=== PATIENT | female | born 1950 | race Caucasian/White ===

== ENCOUNTER → 2016-07-11 | Day surgery (SDC) | payer MEDICARE, MEDICAID ==
[~2016-07-11] MED LIST: BUPR-175 PO; CIPR500T4 PO; CLON1 PO; CYCL-36 PO; HYDR10TA16 PO; LACTATED RINGER'S 1000 ML INJ 1,000 ML ONE; PREV15CA20 PO; PROP20TA24 PO; PROPOFOL 200 MG/20 ML AMP IV ONE; SERT100 PO; TRAZ100 PO; ZOCO40TA PO; [UNRECOGNIZED DRUG - OTHER] PO
--- NOTE | 2016-07-11 10:51 | GIPROC ---
[facility] [address], [address] COLONOSCOPY PROCEDURE REPORT EXAM DATE: 07/11/2016 PATIENT NAME: Wang French MR #: [id number] BIRTHDATE: 1950 ENDOSCOPIST: Sina Sun MD ORDER #: [id number] NANNY/HOUSEHOLD MANAGER: Jade Darling RN STATUS: outpatient INDICATIONS: The patient is a 66 yr old female here for a colonoscopy due to high risk patient with personal history of colonic polyps PROCEDURE PERFORMED: Colonoscopy with polypectomy MEDICATIONS: None and Per Anesthesia. PREP QUALITY: excellent ESTIMATED BLOOD LOSS: None CONSENT: The patient understands the risks and benefits of the procedure and understands that these risks include, but are not limited to: sedation, allergic reaction, infection, perforation and/or bleeding. Alternative means of evaluation and treatment include, among others: physical exam, x-rays, and/or surgical intervention. The patient elects to proceed with this endoscopic procedure. medical equipment was checked for proper function. Hand hygiene and appropriate measures for infection prevention was taken. After the risks, benefits and alternatives of the procedure were thoroughly explained, Informed consent was verified, confirmed and timeout was successfully executed by the treatment team. A digital exam revealed no abnormalities of the rectum The [id number] ([id number]) endoscope was introduced through the anus and advanced to the cecum, which was identified by both the appendix and ileocecal valve. The instrument was then slowly withdrawn as the colon was fully examined. COLON FINDINGS: A medium sized smooth sessile polyp was found in the sigmoid colon. A polypectomy was performed with a cold snare. The resection was complete and the polyp tissue was completely retrieved. Moderate diverticulosis was noted in the sigmoid colon. The colon mucosa was otherwise normal. Retroflexed views revealed no abnormalities The scope was then completely withdrawn from the patient and the procedure terminated. PROCEDURE WITHDRAWAL TIME:8minutes ADVERSE EVENTS: There were no complications. IMPRESSIONS: 1. A medium sized sessile polyp was found in the sigmoid colon; polypectomy was performed with a cold snare 2. Moderate diverticulosis was noted in the sigmoid colon 3. The colon mucosa was otherwise normal 4. Retroflexed views revealed no abnormalities 5. Revealed no abnormalities of the rectum RECOMMENDATIONS: 1. Await biopsy results. Biopsy results will not be ready for 7-10 days. If you don't hear from us in two weeks, call our office for results. 2. High fiber diet 3. Yearly hemoccult 4. Follow-up: GI Clinic 4 week(s) RECALL: Return 5 years Colonoscopy Sina Sun MD eSigned: Sina Sun MD 07/11/2016 10:50 AM cc: Chucky Shaw M.D and Umair Montiel [facility] PATIENT NAME: Wang French MR#: [id number]
== END | disposition home or self-care (01) ==
LOC: ESDC 09:06
PROVIDERS: ATTEND Internal Medicine Gastroenterology
DX: Z12.11 Encounter for screening for malignant neoplasm of colon (principal); Z86.010 Personal history of colon polyps; D12.5 Benign neoplasm of sigmoid colon; K57.90 Diverticulosis of intestine, part unspecified, without perforation or abscess without bleeding; R13.10 Dysphagia, unspecified; K20.9 Esophagitis, unspecified; K29.70 Gastritis, unspecified, without bleeding
CPT/HCPCS: 00740; 00810; 43239; 45385; 88305; 88312; J3010; J7120

== ENCOUNTER 2016-11-05 21:02 | Inpatient (IN) | payer MEDICARE, MEDICAID ==
[~2016-11-05] VITALS: Ht 162.6 cm; Wt 93.0 kg
[~2016-11-05 21:02] MED LIST changes: -LACTATED RINGER'S 1000 ML INJ 1,000 ML ONE; -PROPOFOL 200 MG/20 ML AMP IV ONE
[2016-11-05] MEDS ORDERED: SODIUM CHLOR 0.9% 1000 ML INJ 1,000 ML IV SCH (21:11)
[2016-11-05 21:12] VITALS: BP 219/125; PULSE 103; RESP 24; TEMP 98
[2016-11-05 21:19] VITALS: BP 183/94; PULSE 100; RESP 24; TEMP 98; O2SAT 98
--- NOTE | 2016-11-05 21:19 | PD ---
HPI Chief Complaint: ams Time Seen by Provider: 21:11 Travel History International Travel<30 days: No Contact w/Intl Traveler<30days: No Traveled to known affect area: No History of Present Illness HPI daughter called 911 because she was acting confused, per ems she was found sitting and oriented to self only, very slow to answer, per ems none of the medications are appropriately labeled so unsure what patient is taking. however patient stated that she took extra vicodin today. PFSH Past Medical History ADD: Yes Asthma: Yes Bipolar Disorder: Yes Anxiety: Yes Depression: Yes Chest Pain: Yes Diabetes: No Hepatitis: No Hiatal Hernia: No Musculoskeletal: Yes (HERNIATED DISC) Thyroid Disease: No Past Surgical History Genitourinary Surgery: Yes (BLADDER LIFT) Gynecologic Surgery: Yes (TOTAL HYSTERECTOMY) Joint Replacement: Yes (BILATERAL KNEES) Tonsillectomy: Yes Social History Alcohol Use: No Tobacco Use: No Allergies-Medications (Allergen,Severity, Reaction): Coded Allergies: No Known Allergies (Verified , 04/03/10) Reported Meds & Prescriptions Reported Meds & Active Scripts Active Reported Cipro (Ciprofloxacin HCl) 500 Mg Tab 500 Mg PO BID Lortab 10/500 (Acetaminophen/Hydrocodone Bitart) 10 Mg/500 Mg Tab 1 Tab PO Q6HPRN FOR PAIN [Monavie] 1 Oz PO BID Inderal (Propranolol HCl) 20 Mg Tab 20 Mg PO BID Flexeril (Cyclobenzaprine HCl) 10 Mg Tab 10 Mg PO HSPRN Zocor 40 mg (Simvastatin) 40 Mg Tab 40 Mg PO HS Trazodone HCl 100 Mg Tab 300 Mg PO HS Wellbutrin (Bupropion HCl) 75 Mg Tab 75 Mg PO BID Klonopin (Clonazepam) 1 Mg Tab 1 Mg PO TID Zoloft (Sertraline HCl) 100 Mg Tab 200 Mg PO DAILY Prevacid (Lansoprazole) 15 Mg Capcr 15 Mg PO HS Review of Systems ROS Limitations: Altered Mental Status Except as stated in HPI: all other systems reviewed are Neg Physical Exam Exam Limitations: Altered Mental Status Narrative GENERAL: SKIN: Warm and dry. HEAD: Atraumatic. Normocephalic. EYES: Pupils equal and round. No scleral icterus. No injection or drainage. pinpoint pupils ENT: No nasal bleeding or discharge. Mucous membranes pink and moist. NECK: Trachea midline. No JVD. CARDIOVASCULAR: Regular rate and rhythm. RESPIRATORY: No accessory muscle use. Clear to auscultation. Breath sounds equal bilaterally. GASTROINTESTINAL: Abdomen soft, non-tender, nondistended. MUSCULOSKELETAL: Extremities without clubbing, cyanosis, or edema. No obvious deformities. NEUROLOGICAL: Awake and pleasantly confused. No obvious cranial nerve deficits. Motor grossly within normal limits. Five out of 5 muscle strength in the arms and legs. Normal speech. PSYCHIATRIC: Appropriate mood and affect; insight and judgment normal. Data Data Last Documented VS Vital Signs Date Time Temp Pulse Resp B/P (MAP) Pulse Ox O2 Delivery O2 Flow Rate FiO2 11/05/16 21:19 Nasal Cannula 11/05/16 21:19 98.0 100 24 183/94 (123) 98 2.00 Orders Orders Electrocardiogram (11/05/16 21:11) Ammonia (11/05/16 21:11) Complete Blood Count With Diff (11/05/16 21:11) Comprehensive Metabolic Panel (11/05/16 21:11) Creatine Kinase (Cpk) (11/05/16 21:11) Prothrombin Time / Inr (Pt) (11/05/16 21:11) Act Partial Throm Time (Ptt) (11/05/16 21:11) Troponin I (11/05/16 21:11) Thyroid Stimulating Hormone (11/05/16 21:11) Urinalysis - C+S If Indicated (11/05/16 21:11) Lactic Acid Sepsis Protocol (11/05/16 21:11) Chest, Single Ap (11/05/16 21:11) Ct Brain W/O Iv Contrast(Rout) (11/05/16 21:11) Blood Glucose (11/05/16 21:11) Ecg Monitoring (11/05/16 21:11) Iv Access Insert/Monitor (11/05/16 21:11) Oximetry (11/05/16 21:11) Sodium Chlor 0.9% 1000 Ml Inj (Ns 1000 M (11/05/16 21:11) Drug Screen, Random Urine (11/05/16 21:11) Alcohol (Ethanol) (11/05/16 21:11) Tylenol (Acetaminophen) (11/05/16 21:11) Salicylates (Aspirin) (11/05/16 21:11) Ceftriaxone Inj (Rocephin Inj) (11/05/16 21:45) Azithromycin Inj (Zithromax Inj) (11/05/16 21:45) Admit Order (Ed Use Only) (11/06/16 00:00) Labs Laboratory Tests Test 11/05/16 21:21 11/05/16 23:42 White Blood Count 8.3 TH/MM3 Red Blood Count 4.22 MIL/MM3 Hemoglobin 12.6 GM/DL Hematocrit 38.4 % Mean Corpuscular Volume 91.0 FL Mean Corpuscular Hemoglobin 29.9 PG Mean Corpuscular Hemoglobin Concent 32.9 % Red Cell Distribution Width 14.2 % Platelet Count 236 TH/MM3 Mean Platelet Volume 9.2 FL Neutrophils (%) (Auto) 81.3 % Lymphocytes (%) (Auto) 13.8 % Monocytes (%) (Auto) 3.7 % Eosinophils (%) (Auto) 0.6 % Basophils (%) (Auto) 0.6 % Neutrophils # (Auto) 6.8 TH/MM3 Lymphocytes # (Auto) 1.2 TH/MM3 Monocytes # (Auto) 0.3 TH/MM3 Eosinophils # (Auto) 0.1 TH/MM3 Basophils # (Auto) 0.1 TH/MM3 CBC Comment DIFF FINAL Differential Comment Prothrombin Time 10.6 SEC Prothromb Time International Ratio 1.0 RATIO Activated Partial Thromboplast Time 20.5 SEC Blood Urea Nitrogen 17 MG/DL Creatinine 1.20 MG/DL Random Glucose 160 MG/DL Total Protein 8.4 GM/DL Albumin 3.9 GM/DL Calcium Level 9.4 MG/DL Alkaline Phosphatase 136 U/L Aspartate Amino Transf (AST/SGOT) 17 U/L Alanine Aminotransferase (ALT/SGPT) 19 U/L Total Bilirubin 0.2 MG/DL Sodium Level 139 MEQ/L Potassium Level 3.3 MEQ/L Chloride Level 102 MEQ/L Carbon Dioxide Level 27.5 MEQ/L Anion Gap 10 MEQ/L Estimat Glomerular Filtration Rate 45 ML/MIN Lactic Acid Level 1.9 mmol/L Ammonia 27 MCMOL/L Total Creatine Kinase 110 U/L Troponin I LESS THAN 0.02 NG/ML Thyroid Stimulating Hormone 3rd Gen 7.960 uIU/ML Salicylates Level LESS THAN 1.7 MG/DL Acetaminophen Level LESS THAN 2.0 MCG/ML Ethyl Alcohol Level LESS THAN 3 MG/DL Urine Color LIGHT-YELLOW Urine Turbidity CLEAR Urine pH 6.5 Urine Specific [place] 1.016 Urine Protein TRACE mg/dL Urine Glucose (UA) NEG mg/dL Urine Ketones NEG mg/dL Urine Occult Blood NEG Urine Nitrite NEG Urine Bilirubin NEG Urine Urobilinogen LESS THAN 2.0 MG/DL Urine Leukocyte Esterase NEG Urine RBC 1 /hpf Urine WBC 2 /hpf Urine Hyaline Casts 3 /lpf Microscopic Urinalysis Comment CATH-CULT NOT IND Urine Opiates Screen POS Urine Barbiturates Screen NEG Urine Amphetamines Screen NEG Urine Benzodiazepines Screen NEG Urine Cocaine Screen NEG Urine Cannabinoids Screen POS MDM Medical Decision Making Medical Screen Exam Complete: Yes Emergency Medical Condition: Yes Medical Record Reviewed: Yes Differential Diagnosis ams v electrolyte abnl v anemia v ich v sepsis v uti Narrative Course PATIENT CT IS NEG FOR ICH, NO E/O UTI, NO ANEMIA OR ELECTROLYTE ABNL, PATIENT WILL BE OBS DUE TO HTN AND CONFUSION Diagnosis Primary Impression: Acute encephalopathy Additional Impression: Hypertension Qualified Codes: I10 - Essential (primary) hypertension Admitting Information Admitting Physician Requests: Observation Matthew Klein MD Nov 05, 2016 21:19
--- NOTE | 2016-11-05 21:39 | RADRPT ---
EXAM DATE/TIME: 11/05/2016 21:18 [facility] COMPARISON: No previous studies available for comparison. INDICATIONS : Short of breath MEDICAL HISTORY : None. SURGICAL HISTORY : None. ENCOUNTER: Initial ACUITY: 1 day PAIN SCORE: Non-responsive. LOCATION: chest FINDINGS: Mild motion degraded AP view of the chest demonstrates a normal-sized cardiac silhouette with calcifi cation of the aorta. There is a small left basilar opacity. No pneumothorax is identified. No right l anjana abnormality is seen. Bones and soft tissues demonstrate no acute finding. CONCLUSION: Small left basilar opacity and the appearance is nonspecific and this could represent atelectasis, co nsolidation, or small pleural effusion. Kenny Joshi MD on November 05, 2016 at 21:36 Board Certified Radiologist. This report was verified electronically.
[2016-11-05] MEDS ORDERED: AZITHROMYCIN INJ 500 MG in SODIUM CHLOR 0.9% 250 ML INJ 250 ML IV ONE (21:45)
[2016-11-05] MEDS ORDERED: cefTRIAXone INJ 1,000 MG in SODIUM CHLORIDE 0.9% INJ 100 ML IV ONE (21:45)
[2016-11-05 21:47] LABS: AUTOMATED NEUTROPHIL # 6.8 TH/MM3 (1.8-7.7); BASOPHIL # 0.1 TH/MM3 (0-0.2); BASOPHIL % 0.6 % (0.0-2.0); EOSINOPHIL # 0.1 TH/MM3 (0-0.4); EOSINOPHIL % 0.6 % (0.0-4.0); HEMATOCRIT 38.4 % (35.0-46.0); HEMO FLAGS DIFF FINAL; LYMPH % 13.8 % (9.0-44.0); LYMPHOCYTE # 1.2 TH/MM3 (1.0-4.8); MEAN CORPUSCULAR HEMOGLOBIN 29.9 PG (27.0-34.0); MEAN CORPUSCULAR HGB CONC 32.9 % (32.0-36.0); MONO % 3.7 % (0.0-8.0); NEUT % 81.3 % (16.0-70.0); PLATELET COUNT 236 TH/MM3 (150-450); RED BLOOD COUNT 4.22 MIL/MM3 (4.00-5.30); RED CELL DISTRIBUTION WIDTH 14.2 % (11.6-17.2); WHITE BLOOD COUNT 8.3 TH/MM3 (4.0-11.0)
[2016-11-05 22:02] LABS: PROTHROMBIN TIME - PATIENT 10.6 SEC (9.8-11.6)
[2016-11-05 22:03] LABS: ALT (GPT) 19 U/L (10-53)
[2016-11-05 22:13] LABS: ALKALINE PHOSPHATASE 136 U/L (45-117); CREATINE KINASE 110 U/L (26-192); TOTAL BILIRUBIN ADULT 0.2 MG/DL (0.2-1.0)
--- NOTE | 2016-11-05 22:13 | RADRPT ---
EXAM DATE/TIME: 11/05/2016 21:53 [facility] COMPARISON: No previous studies available for comparison. INDICATIONS : Altered mental status. RADIATION DOSE: 56.35 CTDIvol (mGy) MEDICAL HISTORY : Cardiovascular disease. Hypertension. SURGICAL HISTORY : Hysterectomy. bladder lift, back surgery ENCOUNTER: Initial ACUITY: 1 day PAIN SCALE: 0/10 LOCATION: cranial TECHNIQUE: Multiple contiguous axial images were obtained of the head. Using automated exposure control and adj ustment of the mA and/or kV according to patient size, radiation dose was kept as low as reasonably a chievable to obtain optimal diagnostic quality images. DICOM format image data is available electro nically for review and comparison. FINDINGS: CEREBRUM: There is mild cerebral atrophy. Ventricles are normal. No evidence of midline shift, mass lesion, he morrhage or acute infarction. No extra-axial fluid collections are seen. POSTERIOR FOSSA: The cerebellum and brainstem demonstrate no acute finding. The 4th ventricle is midline. The cerebe llopontine angle is unremarkable. EXTRACRANIAL: There is polypoid appearing mucoperiosteal thickening measuring approximately 2 cm in the right maxil jim antrum. SKULL: The calvaria is intact. No evidence of skull fracture. CONCLUSION: 1. No acute intracranial abnormality is identified. 2. Polypoid appearing right maxillary mucoperiosteal thickening. Kenny Joshi MD on November 05, 2016 at 22:10 Board Certified Radiologist. This report was verified electronically.
[2016-11-05 22:15] LABS: ANION GAP 10 MEQ/L (5-15); AST (GOT) 17 U/L (15-37); BICARBONATE 27.5 MEQ/L (21.0-32.0); BLOOD UREA NITROGEN 17 MG/DL (7-18); CHLORIDE 102 MEQ/L (98-107); GLOMERULAR FILTRATION RATE 45 ML/MIN (>89); POTASSIUM 3.3 MEQ/L (3.5-5.1); SODIUM (NA) 139 MEQ/L (136-145)
[2016-11-05 22:22] LABS: APTT (PATIENT) 20.5 SEC (24.3-30.1)
[2016-11-05 22:31] LABS: ACETAMINOPHEN LESS THAN 2.0 MCG/ML (10.0-30.0); ALCOHOL LESS THAN 3 MG/DL (0-5)
[2016-11-06] VITALS (19 sets, daily range): BP systolic 159–230; BP diastolic 79–130; PULSE 68–89; RESP 12–20; TEMP 97.2–98.4; O2SAT 97–100
[2016-11-06] MEDS ORDERED: D5-1/2 NS + KCL 20 MEQ INJ 1,000 ML IV SCH (00:44)
[2016-11-06] MEDS ORDERED: SENNOSIDES 8.6 MG TAB PO PRN (00:45)
[2016-11-06] MEDS ORDERED: MAGNESIUM HYDROXIDE SUSP 30 ML CUP PO PRN (00:45)
[2016-11-06] MEDS ORDERED: TEMAZEPAM 15 MG CAP PO PRN (00:45)
[2016-11-06] MEDS ORDERED: LACTULOSE SYRUP 20 GM/30 ML CUP PO PRN (00:45)
[2016-11-06] MEDS ORDERED: NALOXONE HCL 0.4 MG/ML AMP IV PUSH PRN (00:45)
[2016-11-06] MEDS ORDERED: BISACODYL 10 MG SUPP RECTAL PRN (00:45)
[2016-11-06] MEDS ORDERED: PROPRANOLOL HCL 20 MG TAB PO ONE (00:45)
[2016-11-06] MEDS ORDERED: SODIUM CHLORIDE 0.9% FLUSH 10 ML FLUSH IV FLUSH PRN (00:45)
[2016-11-06 01:05] LABS: BLOOD, URINE NEG (NEG); GLUCOSE,URINE NEG (NEG); HYALINE CAST, URINE 3 /lpf (RARE); KETONE, URINE NEG (NEG); NITRITE,URINE NEG (NEG); PH, URINE 6.5 (5.0-8.5); URINE COLOR LIGHT-YELLOW (YELLW/STRAW)
[2016-11-06 01:09] LABS: COMMENT (UR) CATH-CULT NOT IND; CULTURE IF INDICATED CATH CULTURE NOT IND
[2016-11-06] MEDS: LABETALOL HCL 100 MG/20 ML VIAL IV PRN ×2 (01:29→07:55)
--- NOTE | 2016-11-06 01:48 | HHI.HP ---
[facility] Primary Care Physician Chucky Evans, DO Admission Diagnosis ALTERED MENTAL STATUS Diagnoses: Chief Complaint: AMS Travel History International Travel<30 Days: No Contact w/Intl Traveler <30 Da: No Traveled to Known Affected Are: No History of Present Illness Written by TONY Wall acting as scribe for [Juan] on 11/06/16 at 01 :43. 66 y/o female with a history of ADD, asthma, bipolar anxiety and depression was brought in by [facility] after the daughter found the patient confused. Last seen 5 hours prior to admission. Per the ER physician when evac arrived they found unlabeled medications, and the patient was able to states she took extra Vicodin. Patient does not currently answer any questions, only is able to say no to pain. She is currently altered and ROS and history is very limited. No family at bedside for questioning. Review of Systems ROS Limitations: Altered Mental Status Past Family Social History Past Medical History Bipolar Anxiety Depression Gerd Past Surgical History Tonsillectomy Hysterectomy Bilateral knee replacement Reported Medications Reported Meds & Active Scripts Active Reported Cipro (Ciprofloxacin HCl) 500 Mg Tab 500 Mg PO BID Lortab 10/500 (Acetaminophen/Hydrocodone Bitart) 10 Mg/500 Mg Tab 1 Tab PO Q6HPRN FOR PAIN [Monavie] 1 Oz PO BID Inderal (Propranolol HCl) 20 Mg Tab 20 Mg PO BID Flexeril (Cyclobenzaprine HCl) 10 Mg Tab 10 Mg PO HSPRN Zocor 40 mg (Simvastatin) 40 Mg Tab 40 Mg PO HS Trazodone HCl 100 Mg Tab 300 Mg PO HS Wellbutrin (Bupropion HCl) 75 Mg Tab 75 Mg PO BID Klonopin (Clonazepam) 1 Mg Tab 1 Mg PO TID Zoloft (Sertraline HCl) 100 Mg Tab 200 Mg PO DAILY Prevacid (Lansoprazole) 15 Mg Capcr 15 Mg PO HS Allergies: Coded Allergies: No Known Allergies (Verified , 04/03/10) Active Ordered Medications Current Medications Medications (Trade) Dose Ordered Sig/Jose J Route Start Time Stop Time Status Last Admin Sodium Chloride 1,000 ml @ 125 mls/hr Q8H IV 11/05/16 21:11 11/06/16 05:10 11/05/16 21:31 (Inderal) 20 mg BID PO 11/06/16 09:00 (Trandate Inj) 10 mg Q4H PRN IV 11/06/16 00:45 11/06/16 01:29 Potassium Chloride/Dextrose/ Sod Cl 1,000 ml @ 100 mls/hr Q10H IV 11/06/16 00:44 11/06/16 10:43 (NS Flush) 2 ml UNSCH PRN IV FLUSH 11/06/16 00:45 (NS Flush) 2 ml BID IV FLUSH 11/06/16 09:00 (Tylenol) 650 mg Q4H PRN PO 11/06/16 00:45 (Restoril) 15 mg HS PRN PO 11/06/16 00:45 (Heparin Inj) 5,000 units Q12HR SQ 11/06/16 09:00 (Narcan Inj) 0.4 mg UNSCH PRN IV PUSH 11/06/16 00:45 (Milk Of Magnesia Liq) 30 ml Q12H PRN PO 11/06/16 00:45 (Senokot) 17.2 mg Q12H PRN PO 11/06/16 00:45 (Dulcolax Supp) 10 mg DAILY PRN RECTAL 11/06/16 00:45 (Lactulose Liq) 30 ml DAILY PRN PO 11/06/16 00:45 (Catapres) 0.1 mg Q6H PRN PO 11/06/16 02:00 Family History Unknown family history at this time Social History Patient is unable to provide social history Physical Exam Vital Signs Vital Signs Date Time Temp Pulse Resp B/P (MAP) Pulse Ox O2 Delivery O2 Flow Rate FiO2 11/06/16 01:20 75 12 208/97 (134) 98 Nasal Cannula 2.00 11/05/16 21:19 Nasal Cannula 11/05/16 21:19 98.0 100 24 183/94 (123) 98 Nasal Cannula 2.00 11/05/16 21:12 98.0 103 24 219/125 (156) Physical Exam GENERAL: obtunded patient who is not answering questions SKIN: No rashes, ecchymoses or lesions. HEAD: Atraumatic. Normocephalic. EYES: Pupils equal, pinpoint and round. ENT: Nose without bleeding, purulent drainage or septal hematoma. Airway patent. NECK: Trachea midline. No JVD or lymphadenopathy. CARDIOVASCULAR: Regular rate and rhythm without murmurs, gallops, or rubs. RESPIRATORY: Clear to auscultation. Breath sounds equal bilaterally. No wheezes , rales, or rhonchi. GASTROINTESTINAL: Abdomen soft, non-tender, nondistended. No guarding. MUSCULOSKELETAL: Extremities without clubbing, cyanosis, or edema. No calf tenderness. NEUROLOGICAL: Obtunded, does not follow directions. Laboratory Laboratory Tests Test 11/05/16 21:21 11/05/16 23:42 White Blood Count 8.3 Red Blood Count 4.22 Hemoglobin 12.6 Hematocrit 38.4 Mean Corpuscular Volume 91.0 Mean Corpuscular Hemoglobin 29.9 Mean Corpuscular Hemoglobin Concent 32.9 Red Cell Distribution Width 14.2 Platelet Count 236 Mean Platelet Volume 9.2 Neutrophils (%) (Auto) 81.3 Lymphocytes (%) (Auto) 13.8 Monocytes (%) (Auto) 3.7 Eosinophils (%) (Auto) 0.6 Basophils (%) (Auto) 0.6 Neutrophils # (Auto) 6.8 Lymphocytes # (Auto) 1.2 Monocytes # (Auto) 0.3 Eosinophils # (Auto) 0.1 Basophils # (Auto) 0.1 CBC Comment DIFF FINAL Differential Comment Prothrombin Time 10.6 Prothromb Time International Ratio 1.0 Activated Partial Thromboplast Time 20.5 Blood Urea Nitrogen 17 Creatinine 1.20 Random Glucose 160 Total Protein 8.4 Albumin 3.9 Calcium Level 9.4 Alkaline Phosphatase 136 Aspartate Amino Transf (AST/SGOT) 17 Alanine Aminotransferase (ALT/SGPT) 19 Total Bilirubin 0.2 Sodium Level 139 Potassium Level 3.3 Chloride Level 102 Carbon Dioxide Level 27.5 Anion Gap 10 Estimat Glomerular Filtration Rate 45 Lactic Acid Level 1.9 Ammonia 27 Total Creatine Kinase 110 Troponin I LESS THAN 0.02 Thyroid Stimulating Hormone 3rd Gen 7.960 Salicylates Level LESS THAN 1.7 Acetaminophen Level LESS THAN 2.0 Ethyl Alcohol Level LESS THAN 3 Urine Color LIGHT-YELLOW Urine Turbidity CLEAR Urine pH 6.5 Urine Specific [place] 1.016 Urine Protein TRACE Urine Glucose (UA) NEG Urine Ketones NEG Urine Occult Blood NEG Urine Nitrite NEG Urine Bilirubin NEG Urine Urobilinogen LESS THAN 2.0 Urine Leukocyte Esterase NEG Urine RBC 1 Urine WBC 2 Urine Hyaline Casts 3 Microscopic Urinalysis Comment CATH-CULT NOT IND Urine Opiates Screen POS Urine Barbiturates Screen NEG Urine Amphetamines Screen NEG Urine Benzodiazepines Screen NEG Urine Cocaine Screen NEG Urine Cannabinoids Screen POS Result Diagram: 11/05/16212011/05/162120 Imaging Last Impressions Head CT 11/05/162110 Signed Impressions: Service Date/Time: Saturday, November 05, 2016 21:53 - CONCLUSION: 1. No acute intracranial abnormality is identified. 2. Polypoid appearing right maxillary mucoperiosteal thickening. Kenny Joshi MD Chest X-Ray 11/05/162110 Signed Impressions: Service Date/Time: Saturday, November 05, 2016 21:18 - CONCLUSION: Small left basilar opacity and the appearance is nonspecific and this could represent atelectasis, consolidation, or small pleural effusion. Kenny Joshi MD Caprandii VTE Risk Assessment Caprini VTE Risk Assessment: Mod/High Risk (score >= 2) Caprini Risk Assessment Model Point Value = 1 Point Value = 2 Point Value = 3 Point Value = 5 Age 41-60 Minor surgery BMI > 25 kg/m2 Swollen legs Varicose veins or History of unexplained or recurrent spontaneous Oral contraceptives or hormone replacement Sepsis (< 1 month) Serious lung disease, including pneumonia (< 1 month) Abnormal pulmonary function Acute myocardial infarction Congestive heart failure (< 1 month) History of inflammatory bowel disease Medical patient at bed rest Age 61-74 Arthroscopic surgery Major open surgery (> 45 min) Laparoscopic surgery (> 45 min) Malignancy Confined to bed (> 72 hours) Immobilizing plaster cast Central venous access Age >= 75 History of VTE Family history of VTE Factor V Leiden Prothrombin [id number] Lupus anticoagulant Anticardiolipin antibodies Elevated serum homocysteine Heparin-induced thrombocytopenia Other congenital or acquired thrombophilia Stroke (< 1 month) Elective arthroplasty Hip, pelvis, or leg fracture Acute spinal cord injury (< 1 month) Prophylaxis Regimen Total Risk Factor Score Risk Level Prophylaxis Regimen 0-1 Low Early ambulation 2 Moderate Order ONE of the following: *Sequential Compression Device (SCD) *Heparin 5000 units SQ BID 3-4 Higher Order ONE of the following medications: *Heparin 5000 units SQ TID *Enoxaparin/Lovenox 40 mg SQ daily (WT < 150 kg, CrCl > 30 mL/min) *Enoxaparin/Lovenox 30 mg SQ daily (WT < 150 kg, CrCl > 10-29 mL/min) *Enoxaparin/Lovenox 30 mg SQ BID (WT < 150 kg, CrCl > 30 mL/min) AND/OR *Sequential Compression Device (SCD) 5 or more Highest Order ONE of the following medications: *Heparin 5000 units SQ TID (Preferred with Epidurals) *Enoxaparin/Lovenox 40 mg SQ daily (WT < 150 kg, CrCl > 30 mL/min) *Enoxaparin/Lovenox 30 mg SQ daily (WT < 150 kg, CrCl > 10-29 mL/min) *Enoxaparin/Lovenox 30 mg SQ BID (WT < 150 kg, CrCl > 30 mL/min) AND *Sequential Compression Device (SCD) Assessment and Plan Problem List: (1) Acute encephalopathy ICD Code: G93.40 - Encephalopathy, unspecified (2) Acute kidney injury ICD Code: N17.9 - Acute kidney failure, unspecified (3) Hypertension ICD Code: I10 - Essential (primary) hypertension Assessment and Plan 66 y/o female with a history of ADD, asthma, bipolar anxiety and depression was brought in by [facility] after the daughter found the patient confused. Acute encephalopathy, suspect toxic due to polypharmacy, ammonia [address] reviewed and shows no acute infarcts Urine drug screen positive for opiates, and marijuana -neuro checks -MRI brain ordered -EEG ordered .Hypertension, uncontrolled -Clonidine and labetalol prn -Monitor vitals Acute kidney injury, creatine 1.2, .7 in 2007 -Cont IVF -Labs in AM Hypokalemia, potassium 3.3 -Added potassium to IVF, trend labs, and replace as needed DVT prophylaxis: Heparin This note was transcribed by titoibe [Marii Abrams]. I, Dr. Kylah Martinez personally performed the history, physical exam, and medical decision making; and confirmed the accuracy of the information in the transcribed note. Authenticated by Dr. Kylah Martinez on 11/06/16 at 0150. Discussed Condition With Patient, RN and ED physician Physician Certification 2 Midnight Certification Type: Admission for Inpatient Services Order for Inpatient Services The services are ordered in accordance with Medicare regulations or non- Medicare payer requirements, as applicable. In the case of services not specified as inpatient-only, they are appropriately provided as inpatient services in accordance with the 2-midnight benchmark. Estimated LOS (days): 3 days is the estimated time the patient will need to remain in the hospital, assuming treatment plan goals are met and no additional complications. Post-Hospital Plan: Not yet determined Marii Abrams Nov 06, 2016 01:48 Kylah Martinez MD Nov 06, 2016 03:11
[2016-11-06] MEDS ORDERED: cloNIDine HCL 0.1 MG TAB PO PRN (02:00)
[2016-11-06 07:04] LABS: BICARBONATE 28.4 MEQ/L (21.0-32.0); POTASSIUM 3.2 MEQ/L (3.5-5.1)
[2016-11-06] MEDS ORDERED: POTASSIUM CHLORIDE 10 MEQ CONTROLLED RELEASE TAB PO ONE (09:30)
[2016-11-06] MEDS ORDERED: MORPHINE SULFATE 4 MG/ML INJ IV PUSH ONE (09:30)
--- NOTE | 2016-11-06 09:35 | HHI.PR ---
Subjective Remarks Follow up encephalopathy. Patient reports significant pain in her neck, which she states started after her arrival to the ER. Reports numbness in her hands, which is chronic and unchanged. She does not remember any of the events that led to her coming to the hospital. Her son is at bedside and states that his sister was with the patient at home. When the patient's daughter entered the room where the patient was, she noticed a spray paint can upside down in the patient's chair with the contents spraying out. The entire room reportedly smelled strongly of spray paint and the patient was noted to be confused/ lethargic. Objective Vitals Vital Signs Date Time Temp Pulse Resp B/P (MAP) Pulse Ox O2 Delivery O2 Flow Rate FiO2 11/06/16 09:00 74 11/06/16 08:00 78 11/06/16 07:59 186/103 (130) 11/06/16 07:00 76 11/06/16 07:00 98.4 84 18 195/103 (133) 97 11/06/16 06:00 77 11/06/16 05:00 70 11/06/16 04:00 97.8 81 20 172/98 (122) 99 11/06/16 04:00 75 11/06/16 03:55 11/06/16 02:18 82 18 175/82 (113) 100 2.00 11/06/16 01:20 75 12 208/97 (134) 98 Nasal Cannula 2.00 11/05/16 21:19 Nasal Cannula 11/05/16 21:19 98.0 100 24 183/94 (123) 98 Nasal Cannula 2.00 11/05/16 21:12 98.0 103 24 219/125 (156) I/O 11/05/16 11/05/16 11/05/16 11/06/16 11/06/16 11/06/16 07:00 15:00 23:00 07:00 15:00 23:00 Intake Total 240 ml Balance 240 ml Intake Oral 240 ml # Voids 1 # Bowel Movements 0 Result Diagram: 11/05/16212011/06/16 0610 Imaging Last Impressions Head CT 11/05/162110 Signed Impressions: Service Date/Time: Saturday, November 05, 2016 21:53 - CONCLUSION: 1. No acute intracranial abnormality is identified. 2. Polypoid appearing right maxillary mucoperiosteal thickening. Kenny Joshi MD Chest X-Ray 11/05/162110 Signed Impressions: Service Date/Time: Saturday, November 05, 2016 21:18 - CONCLUSION: Small left basilar opacity and the appearance is nonspecific and this could represent atelectasis, consolidation, or small pleural effusion. Kenny Joshi MD Objective Remarks General: No acute distress. Heart: Regular rate and rhythm. No murmur. Lungs: Clear to auscultation bilaterally. No wheezes, rales, or rhonchi. Breathing is nonlabored. Abdomen: Soft, nontender, nondistended. Extremities: No lower extremity edema. Psych: Alert, confused Urinary Catheter: No Vascular Central Line Catheter: No A/P Problem List: (1) Acute encephalopathy ICD Code: G93.40 - Encephalopathy, unspecified (2) Acute kidney injury ICD Code: N17.9 - Acute kidney failure, unspecified (3) Hypertension ICD Code: I10 - Essential (primary) hypertension Assessment and Plan 1. Acute encephalopathy: Possibly due to polypharmacy, unintentional overdose. However, patient's family reports that she was in a room with spray paint can that was emptied into the air. Still confused. Head CT negative. Monitor symptoms. MRI pending. 2. Acute kidney injury: Continue IV fluids. 3. Hypokalemia: Supplement potassium. 4. Hypertension: BP significantly elevated. Possibly secondary to neck pain. 5. Neck pain: Check x-ray. 6. DVT prophylaxis: Heparin. Juliocesar Tyler MD Nov 06, 2016 09:35
[2016-11-06] MEDS: HEPARIN SODIUM - SQ 10,000 UNITS/ML VIAL SQ SCH ×2 (09:52→21:26)
[2016-11-06] MEDS: SODIUM CHLORIDE 0.9% FLUSH 10 ML FLUSH IV FLUSH SCH ×2 (09:52→21:29)
[2016-11-06] MEDS: PROPRANOLOL HCL 20 MG TAB PO SCH ×2 (09:52→21:29)
--- NOTE | 2016-11-06 11:56 | EKG ---
Date Performed: 11/05/2016 Time Performed: 21:15:33 PTAGE: 66 years EKG: Sinus rhythm POSSIBLE LEFT ATRIAL ENLARGEMENT NONSPECIFIC ST & T-WAVE ABNORMALITY BORDERLINE ECG Compared to prio r tracing no significant change PREVIOUS TRACING : 03/28/2010 10.54 DOCTOR: Jacinto Noyola Interpretating Date/Time 11/06/2016 11:54:01
[2016-11-06] MEDS ORDERED: niCARdipine INJ 25 MG in SODIUM CHLOR 0.9% 250 ML INJ 240 ML IV PRN (13:00)
[2016-11-06] MEDS: hydrALAZINE HCL 20 MG/ML VIAL IV PUSH PRN ×2 (13:44→21:29)
[2016-11-06] MEDS ORDERED: ONDANSETRON HCL 4 MG/2 ML VIAL IV PUSH PRN (14:00)
[2016-11-06] MEDS ORDERED: LORazepam 2 MG/ML VIAL IV PRN (18:15)
--- NOTE | 2016-11-06 19:26 | RADRPT ---
EXAM DATE/TIME: 11/06/2016 18:46 [facility] COMPARISON: No previous studies available for comparison. INDICATIONS : Neck pain no known injury pain since been in hospital. MEDICAL HISTORY : Cardiovascular disease. Hypertension. SURGICAL HISTORY : Hysterectomy. bladder lift, back surgery ENCOUNTER: Subsequent ACUITY: 2 days PAIN SCORE: 8/10 LOCATION: Cervical spine. FINDINGS: Five view examination was performed. There is normal alignment and curvature of the vertebral bodies down to the level of C7. No evidence of fracture or subluxation. Vertebral body height is normal. The disc spaces are maintained. The prevertebral soft tissues are of normal thickness. The atlanto -axial articulation is intact. The bony neural foramen are patent bilaterally. Apparent previous right carotid endarterectomy. Atherosclerotic plaque is seen in the region of the l eft carotid bifurcation. CONCLUSION: No fracture, subluxation or other acute abnormality of the cervical spine. Very mild facet osteoarthr itis. Kenny Hicks MD on November 06, 2016 at 19:23 Board Certified Radiologist. This report was verified electronically.
--- NOTE | 2016-11-06 19:45 | RADRPT ---
EXAM DATE/TIME: 11/06/2016 19:13 [facility] COMPARISON: CT BRAIN W/O CONTRAST, November 05, 2016, 21:53. INDICATIONS : CVA. MEDICAL HISTORY : Hypertension. Gastroesophageal reflux disease. Asthma. SURGICAL HISTORY : Hysterectomy. Tonsillectomy. Coronary artery stent. Bladder sling with mesh. Bi-lateral knee. ENCOUNTER: Subsequent ACUITY: 2 day PAIN SCORE: 3/10 LOCATION: cranial TECHNIQUE: Multiplanar, multisequence MRI of the brain was performed without contrast. FINDINGS: CEREBRUM: The ventricles are normal for age. No evidence of midline shift, mass lesion, hemorrhage or acute in farction. No extraaxial fluid collections are seen. The pituitary gland and suprasellar cistern are normal in configuration. WHITE MATTER: No significant signal abnormalities are seen in the white matter. POSTERIOR FOSSA: The cerebellum and brainstem are intact. The 4th ventricle is midline. The cerebellopontine angle is unremarkable. The cerebellar tonsils are normal in position. DIFFUSION IMAGING: No focal areas of restricted diffusion are seen. No evidence of acute infarction. EXTRACRANIAL: There is a 22 mm heterogeneous mass anteriorly in the right maxillary air cell. A similar appearing m ass measuring 9 x 15 mm partly seen in the left maxillary air cell. There is mild mucoperiosteal thic kening of the visualized paranasal sinuses.. CONCLUSION: 1. No acute intracranial abnormality. 2. Paranasal sinus disease including polypoid masses in both maxillary air cells that may represent m ucous retention cyst but appear somewhat heterogeneous in signal intensity and neoplasm should be inc luded in the differential. Outpatient otolaryngology referral is recommended. Kenny Hicks MD on November 06, 2016 at 19:40 Board Certified Radiologist. This report was verified electronically.
[2016-11-06] MEDS: ACETAMINOPHEN 325 MG TAB PO PRN (21:28)
--- NOTE | 2016-11-06 21:56 | MG ---
cc: STALIN GROSSMAN Lab No: [id number] Date: 11/06/16 Age: Sex: F Race: The patient got some morphine, awake and asleep. Hyperventilation not performed. Confused. Inderal Morphine A diffuse 6 Hz slowing is at times seen even down to 4 Hz occasionally. The patient is noted be snoring but wiggling her feet, could have some restless legs or periodic leg movements of sleep. Some stage II sleep activity is noted. Photic stimulation was performed without significant posterior driving. IMPRESSION Some diffuse slowing consistent with mild diffuse encephalopathy. Some snoring and movements of sleep were noted. Sleep study could be considered. I did not see any seizure activity, MD SYDNIE Savage/ /9:38 PM /9:45 PM
[2016-11-07] VITALS (12 sets, daily range): BP systolic 165–202; BP diastolic 70–99; PULSE 75–91; RESP 20–38; TEMP 98–98.7; O2SAT 92–95
[2016-11-07] MEDS: hydrALAZINE HCL 20 MG/ML VIAL IV PUSH PRN (02:11)
[2016-11-07 06:17] LABS: BICARBONATE 26.7 MEQ/L (21.0-32.0); MAGNESIUM 2.2 MG/DL (1.5-2.5); POTASSIUM 3.3 MEQ/L (3.5-5.1)
[2016-11-07] MEDS ORDERED: MAGNESIUM SULFATE INJ 4 GM in SODIUM CHLORIDE 0.9% INJ 92 ML IV PRN (08:15)
[2016-11-07] MEDS ORDERED: POTASSIUM CHLORIDE 25 MEQ EFFERVESCENT TAB PO PRN (08:15)
[2016-11-07] MEDS ORDERED: POTASSIUM PHOSPHATE MONOBASIC 500 MG TAB PO/TUBE PRN (08:15)
[2016-11-07] MEDS ORDERED: POTASSIUM CHLOR 20 MEQ PREMIX 100 ML IV PRN (08:15)
[2016-11-07] MEDS ORDERED: POTASSIUM CHLOR 40 MEQ PREMIX 100 ML IV PRN ×2 (08:15)
[2016-11-07] MEDS ORDERED: MAGNESIUM OXIDE 400 MG TAB PO PRN (08:15)
[2016-11-07] MEDS ORDERED: POTASSIUM PHOSPHATE INJ 30 MMOL in SODIUM CHLOR 0.9% 250 ML INJ 250 ML IV PRN (08:15)
[2016-11-07] MEDS ORDERED: SODIUM PHOSPHATE INJ 30 MMOL in SODIUM CHLOR 0.9% 250 ML INJ 240 ML IV PRN (08:15)
[2016-11-07] MEDS ORDERED: MAGNESIUM SULFATE INJ 2 GM in SODIUM CHLORIDE 0.9% INJ 96 ML IV PRN (08:15)
[2016-11-07] MEDS ORDERED: POTASSIUM PHOSPHATE MONOBASIC 500 MG TAB PO PRN (08:15)
[2016-11-07] MEDS: HEPARIN SODIUM - SQ 10,000 UNITS/ML VIAL SQ SCH ×2 (08:42→20:05)
[2016-11-07] MEDS: LABETALOL HCL 100 MG/20 ML VIAL IV PRN ×2 (08:42→18:41)
[2016-11-07] MEDS: SODIUM CHLORIDE 0.9% FLUSH 10 ML FLUSH IV FLUSH SCH ×2 (08:43→20:04)
[2016-11-07] MEDS: PROPRANOLOL HCL 20 MG TAB PO SCH ×2 (08:43→20:04)
[2016-11-07] MEDS: ACETAMINOPHEN 325 MG TAB PO PRN ×2 (09:04→18:41)
[2016-11-07] MEDS: POTASSIUM CHLOR 20 MEQ PREMIX 100 ML IV PRN ×2 (10:08→12:38)
--- NOTE | 2016-11-07 10:17 | HHI.PR ---
Subjective Remarks Follow-up encephalopathy, neck pain. The patient is much more alert today. She states that she is having headache, which she states starts in her neck. Denies chest pain, dyspnea. Objective Vitals Vital Signs Date Time Temp Pulse Resp B/P (MAP) Pulse Ox O2 Delivery O2 Flow Rate FiO2 11/07/16 06:00 86 11/07/16 04:00 83 11/07/16 04:00 98.1 91 38 169/79 (109) 93 11/07/16 02:00 84 11/07/16 00:00 98.1 82 20 166/79 (108) 94 11/07/16 00:00 81 11/06/16 22:00 87 11/06/16 20:00 81 11/06/16 18:00 70 11/06/16 16:00 70 11/06/16 16:00 98.0 79 18 159/83 (108) 97 11/06/16 14:00 70 11/06/16 13:30 97.6 71 18 186/79 (114) 97 11/06/16 12:00 70 11/06/16 12:00 70 11/06/16 11:05 89 11/06/16 11:05 97.2 89 18 210/116 (147) 97 I/O 11/06/16 11/06/16 11/06/16 11/07/16 11/07/16 11/07/16 07:00 15:00 23:00 07:00 15:00 23:00 Intake Total 240 ml 120 ml 350 ml 1350 ml Output Total 1600 ml 400 ml 700 ml Balance 240 ml -1480 ml -50 ml -700 ml 1350 ml Intake Oral 240 ml 120 ml 350 ml IV Total 1350 ml Output Urine Total 1600 ml 400 ml 700 ml # Voids 1 # Bowel Movements 0 0 Result Diagram: 11/05/16212011/07/16 0513 Imaging Last Impressions Cervical Spine X-Ray 11/06/16 0000 Signed Impressions: Service Date/Time: Sunday, November 06, 2016 18:46 - CONCLUSION: No fracture, subluxation or other acute abnormality of the cervical spine. Very mild facet osteoarthritis. Kenny Hicks MD Brain MRI 11/06/16 0000 Signed Impressions: Service Date/Time: Sunday, November 06, 2016 19:13 - CONCLUSION: 1. No acute intracranial abnormality. 2. Paranasal sinus disease including polypoid masses in both maxillary air cells that may represent mucous retention cyst but appear somewhat heterogeneous in signal intensity and neoplasm should be included in the differential. Outpatient otolaryngology referral is recommended. Kenny Hicks MD Head CT 11/05/162110 Signed Impressions: Service Date/Time: Saturday, November 05, 2016 21:53 - CONCLUSION: 1. No acute intracranial abnormality is identified. 2. Polypoid appearing right maxillary mucoperiosteal thickening. Kenny Joshi MD Chest X-Ray 11/05/162110 Signed Impressions: Service Date/Time: Saturday, November 05, 2016 21:18 - CONCLUSION: Small left basilar opacity and the appearance is nonspecific and this could represent atelectasis, consolidation, or small pleural effusion. Kenny Joshi MD Objective Remarks Abdomen General: No acute distress. Heart: Regular rate and rhythm. No murmur. Lungs: Clear to auscultation bilaterally. No wheezes, rales, or rhonchi. Breathing is nonlabored. Abdomen: Soft, nontender, nondistended. Extremities: No lower extremity edema. Psych: Alert, oriented 3. Procedures None Urinary Catheter: No Vascular Central Line Catheter: No A/P Problem List: (1) Acute encephalopathy ICD Code: G93.40 - Encephalopathy, unspecified (2) Acute kidney injury ICD Code: N17.9 - Acute kidney failure, unspecified (3) Hypertension ICD Code: I10 - Essential (primary) hypertension Assessment and Plan 1. Acute encephalopathy: Possibly due to polypharmacy, unintentional overdose. However, patient's family reports that she was in a room with spray paint can that was emptied into the air. Mental status has improved significantly. Head CT negative. Monitor symptoms. MRI negative for acute changes. 2. Acute kidney injury: Improved. 3. Hypokalemia: Supplement potassium per electrolyte protocol. 4. Hypertension: BP significantly elevated. IV labetalol, IV hydralazine available as needed. Has not required Cardene drip. Continue propranolol. 5. Neck pain: X-ray is negative. 6. DVT prophylaxis: Heparin. Juliocesar Tyler MD Nov 07, 2016 10:17
[2016-11-07] MEDS: buPROPion HCL 75 MG TAB PO SCH (20:28)
[2016-11-07] MEDS ORDERED: PANTOPRAZOLE SOD 20 MG DELAYED RELEASE TAB PO SCH (21:00)
[2016-11-07] MEDS ORDERED: PRAVASTATIN SOD 80 MG TAB PO SCH (21:00)
[2016-11-08] VITALS (15 sets, daily range): BP systolic 131–186; BP diastolic 62–91; PULSE 65–86; RESP 17–31; TEMP 98–98.6; O2SAT 92–96
[2016-11-08] MEDS: LABETALOL HCL 100 MG/20 ML VIAL IV PRN (03:16)
[2016-11-08] MEDS: hydrALAZINE HCL 20 MG/ML VIAL IV PUSH PRN (06:18)
[2016-11-08] MEDS: ACETAMINOPHEN 325 MG TAB PO PRN (08:14)
[2016-11-08] MEDS: buPROPion HCL 75 MG TAB PO SCH (08:14)
[2016-11-08] MEDS: PROPRANOLOL HCL 20 MG TAB PO SCH (08:14)
[2016-11-08] MEDS: HEPARIN SODIUM - SQ 10,000 UNITS/ML VIAL SQ SCH (08:14)
[2016-11-08] MEDS: SODIUM CHLORIDE 0.9% FLUSH 10 ML FLUSH IV FLUSH SCH (08:15)
[2016-11-08] MEDS ORDERED: LISINOPRIL 20 MG TAB PO SCH (09:00)
[2016-11-08] MEDS ORDERED: SERTRALINE HCL 100 MG TAB PO SCH (09:00)
[2016-11-08] MEDS ORDERED: PNEUMOCOCCAL POLYVALENT INJ 25 MCG/0.5 ML SYR IM ONE (10:00)
--- NOTE | 2016-11-08 13:28 | OTSOAPIP ---
*THIS NOTE LATE CHARTED FOR 11/06/16* RECEIVED OCCUPATIONAL THERAPY CONSULT. PT HAS SINCE TRANSFERRED TO INTENSIVE MEDICAL CARE WITH A CHANGE IN STATUS. WILL REQUIRE NEW ORDERS FOR EVALUATION WHEN STABLE. WILL SIGN OFF. Therapist: KAREY FORD OT/L Signature on file
[2016-11-08] MEDS ORDERED: LISI-515 PO (16:43)
--- NOTE | 2016-11-08 16:48 | HHI.DS ---
Discharge Summary Admission Date Nov 06, 2016 at 01:57 Discharge Date: Nov 08, 2016 Admitting Diagnosis ALTERED MENTAL STATUS (1) Acute encephalopathy ICD Code: G93.40 - Encephalopathy, unspecified Diagnosis: Principal Status: Acute (2) Hypertensive encephalopathy ICD Code: I67.4 - Hypertensive encephalopathy Status: Resolved (3) Acute kidney injury ICD Code: N17.9 - Acute kidney failure, unspecified Status: Resolved (4) Hypertension ICD Code: I10 - Essential (primary) hypertension Status: Chronic Procedures None Brief History - From Admission Written by TONY Wall acting as scribe for [Juan] on 11/06/16 at 01 :43. 66 y/o female with a history of ADD, asthma, bipolar anxiety and depression was brought in by [facility] after the daughter found the patient confused. Last seen 5 hours prior to admission. Per the ER physician when evac arrived they found unlabeled medications, and the patient was able to states she took extra Vicodin. Patient does not currently answer any questions, only is able to say no to pain. She is currently altered and ROS and history is very limited. No family at bedside for questioning. CBC/BMP: 11/05/16 2121 11/07/16 0513 Significant Findings Laboratory Tests Test 11/05/16 21:21 11/05/16 23:42 11/06/16 06:10 11/06/16 13:20 Neutrophils (%) (Auto) 81.3 % (16.0-70.0) Activated Partial Thromboplast Time 20.5 SEC (24.3-30.1) Creatinine 1.20 MG/DL (0.50-1.00) Random Glucose 160 MG/DL (74-106) 137 MG/DL (74-106) Total Protein 8.4 GM/DL (6.4-8.2) Alkaline Phosphatase 136 U/L (45-117) Potassium Level 3.3 MEQ/L (3.5-5.1) 3.2 MEQ/L (3.5-5.1) Estimat Glomerular Filtration Rate 45 ML/MIN (>89) 76 ML/MIN (>89) Troponin I LESS THAN 0.02 NG/ML Thyroid Stimulating Hormone 3rd Gen 7.960 uIU/ML (0.358-3.740) Salicylates Level LESS THAN 1.7 MG/DL Acetaminophen Level LESS THAN 2.0 MCG/ML Urine Opiates Screen POS (NEG) Urine Cannabinoids Screen POS (NEG) Test 11/07/16 05:13 11/07/16 11:00 Random Glucose 153 MG/DL (74-106) Potassium Level 3.3 MEQ/L (3.5-5.1) Estimat Glomerular Filtration Rate 88 ML/MIN (>89) Phosphorus Level 2.4 MG/DL (2.5-4.9) Imaging Last Impressions Cervical Spine X-Ray 11/06/16 0000 Signed Impressions: Service Date/Time: Sunday, November 06, 2016 18:46 - CONCLUSION: No fracture, subluxation or other acute abnormality of the cervical spine. Very mild facet osteoarthritis. Kenny Hicks MD Brain MRI 11/06/16 0000 Signed Impressions: Service Date/Time: Sunday, November 06, 2016 19:13 - CONCLUSION: 1. No acute intracranial abnormality. 2. Paranasal sinus disease including polypoid masses in both maxillary air cells that may represent mucous retention cyst but appear somewhat heterogeneous in signal intensity and neoplasm should be included in the differential. Outpatient otolaryngology referral is recommended. Kenny iHcks MD Head CT 11/05/162110 Signed Impressions: Service Date/Time: Saturday, November 05, 2016 21:53 - CONCLUSION: 1. No acute intracranial abnormality is identified. 2. Polypoid appearing right maxillary mucoperiosteal thickening. Kenny Joshi MD Chest X-Ray 11/05/162110 Signed Impressions: Service Date/Time: Saturday, November 05, 2016 21:18 - CONCLUSION: Small left basilar opacity and the appearance is nonspecific and this could represent atelectasis, consolidation, or small pleural effusion. Kenny Joshi MD PE at Discharge Abdomen General: No acute distress. Heart: Regular rate and rhythm. No murmur. Lungs: Clear to auscultation bilaterally. No wheezes, rales, or rhonchi. Breathing is nonlabored. Abdomen: Soft, nontender, nondistended. Extremities: No lower extremity edema. Psych: Alert, oriented 3. Hospital Course 66-year-old white female was admitted for acute encephalopathy and acute kidney injury. Her acute encephalopathy likely due to polypharmacy as home trial trazodone, Klonopin was discontinued and his hospitalization. In addition she present with hypertensive urgency which may have contributed to acute encephalopathy with having hypertensive encephalopathy. She was started on lisinopril which did improve her blood pressure during hospitalization. Her acute kidney injury resolved and improved hydration. In addition, she had abnormal findings of her sinus which she was advised to follow-up with the ENT for further outpatient evaluation. Pt Condition on Discharge: Good Discharge Disposition: Discharge Home Discharge Time: <= 30 minutes Discharge Instructions DIET: Follow Instructions for: Heart Healthy Diet Activities you can perform: Regular-No Restrictions Follow up Referrals: Ear Nose Throat - 1 Week New Medications: Lisinopril (Lisinopril) 20 Mg Tab 20 MG PO DAILY, #30 TAB 0 Refills Continued Medications: Bupropion Hcl (Wellbutrin) 75 Mg Tab 75 MG PO BID Cyclobenzaprine Hcl (Flexeril) 10 Mg Tab 10 MG PO HSPRN Hydrocodone-Acetaminophen (Lortab 10/500) 10 Mg/500 Mg Tab 1 TAB PO Q6HPRN FOR PAIN Lansoprazole (Prevacid) 15 Mg Capcr 15 MG PO HS Propranolol Hcl (Inderal) 20 Mg Tab 20 MG PO BID Sertraline Hcl (Zoloft) 100 Mg Tab 200 MG PO DAILY Simvastatin (Zocor 40 mg) 40 Mg Tab 40 MG PO HS Discontinued Medications: Ciprofloxacin Hcl (Cipro) 500 Mg Tab 500 MG PO BID Clonazepam (Klonopin) 1 Mg Tab 1 MG PO TID Trazodone HCl (Trazodone HCl) 100 Mg Tab 300 MG PO HS [Monavie] () 1 OZ PO BID Martina Harris MD Nov 08, 2016 16:48
== END 2016-11-08 18:30 | disposition home or self-care (01) | DRG 77 ==
LOC: NEPE 21:02 → NEDA 11-06 00:02 → OBSVTOIN 11-06 01:57 → HCIS 11-06 03:11 → HIMN 11-06 13:15
PROVIDERS: ADMIT Family Medicine; ATTEND Family Medicine
DX: I67.4 Hypertensive encephalopathy (principal); G92 Toxic encephalopathy; N17.9 Acute kidney failure, unspecified; I10 Essential (primary) hypertension; J45.909 Unspecified asthma, uncomplicated; F32.9 Major depressive disorder, single episode, unspecified; F41.9 Anxiety disorder, unspecified; I16.0 Hypertensive urgency; Z96.653 Presence of artificial knee joint, bilateral; E87.6 Hypokalemia; M54.2 Cervicalgia
CPT/HCPCS: 70450; 70551; 71010; 72050; 80048; 80053; 80307; 81001; 82140; 82550; 83605; 83735; 84100; 84443; 84484; 85025; 85610; 85730; 87641; 93005; 95819; 96374; 96375; J0360; J0456; J0696; J1644; J2060; J2270; J2405; J3480; J7030; J7050